=== PATIENT | female | born 1990 ===

== ENCOUNTER 2016-09-15 11:57 | Emergency (ER) | payer OTHER ==
[2016-09-15 12:29] VITALS: BP 180/92
--- NOTE | 2016-09-15 12:44 | UC ---
Lower Extremity/Ankle HPI - HPI Summary HPI Summary: The patient comes in today for: 1. Left ankle/foot pain: Onset: 4 days ago. Palliative/provocative: Standing makes it worse, but it is better tolerated than walking. Quality: sharp. Region: Left foot and ankle. Severity: 6/10 Time: Constant. Associated symptoms: Injury: She wore heels and walking over the cobblestone walkway. While walking, she slipped and fell forward. Home treatment: Iced, hot beanie, soaking with Epson salt, and Tylenol. The Tylenol helps. Numbness: None now. * - History of Current Complaint Chief Complaint: UCLowerExtremity Stated Complaint: ANKLE INJURY Time Seen by Provider: 09/15/16 12:38 Hx Obtained From: Patient Hx Last Menstrual Period: 08/25/16 ?: No - Allergies/Home Medications Allergies/Adverse Reactions: Allergies Allergy/AdvReac Type Severity Reaction Status Date / Time No Known Allergies Allergy Verified 12/15/15 07:59 PMH/Surg Hx/FS Hx/Imm Hx Previously Healthy: Yes Endocrine History Of: Denies: Diabetes, Thyroid Disease, Hyperthyroidism, Hypothyroidism, Dyslipidemia Cardiovascular History Of: Reports: Cardiac Disorders - heart murmur Denies: Hypertension, Pacemaker/ICD, Myocardial Infarction, Congestive Heart Failure, Atrial Fibrillation, Deep Vein Thrombosis, Bleeding Disorders Respiratory History Of: Reports: Asthma - PRN inhaler Denies: COPD, Bronchitis, Pneumonia, Pulmonary Embolism GI/ History Of: Denies: Gastroesophageal Reflux, Ulcer, Gastrointestinal Bleed, Gall Bladder Disease, Kidney Stones, Diverticulitis, Renal Disease, Urosepsis Neurological History Of: Denies: TIA, CVA, Dementia, Seizures, Migraine Psychological History Of: Denies: Anxiety, Depression, Bipolar Disorder, Schizophrenia, Post Traumatic Stress Disorder Cancer History Of: Denies: Lung Cancer, Colorectal Cancer, Breast Cancer, Prostate Cancer, Cervical Cancer Other History Of: Negative For: HIV, Hepatitis B, Hepatitis C, Anticoagulant Therapy - Surgical History Surgical History: None - Family History Known Family History: Positive: Cardiac Disease, Hypertension, Diabetes - Social History Occupation: Employed Full-time Alcohol Use: Rare Substance Use Type: None Smoking Status (MU): Former Smoker Type: Cigarettes Amount Used/How Often: 1/2 PPD When Did the Patient Quit Smoking/Using Tobacco: Apr 2015 - Immunization History Most Recent Influenza Vaccination: 2014 Review of Systems Constitutional: Negative Skin: Negative Eyes: Negative ENT: Negative Respiratory: Negative Cardiovascular: Negative Gastrointestinal: Negative Genitourinary: Negative Musculoskeletal: Arthralgia, Edema All Other Systems Reviewed And Are Negative: Yes Physical Exam Triage Information Reviewed: Yes Appearance: Well-Appearing, No Pain Distress, Well-Nourished Vital Signs: Initial Vital Signs Temp 98.4 F 09/15/16 12:23 Pulse 94 09/15/16 12:23 Resp 16 09/15/16 12:23 BP 180/92 09/15/16 12:23 Pulse Ox 100 09/15/16 12:23 Vital Signs Reviewed: Yes Eyes: Positive: Conjunctiva Clear. Negative: Discharge ENT: Positive: Hearing grossly normal. Negative: Pharyngeal erythema, Nasal congestion, Nasal drainage, TM bulging, TM dull, TM red, Tonsillar swelling, Tonsillar exudate Dental: Negative: Gross Decay/Caries @, Dental Fracture @ Neck: Positive: Supple, Nontender Respiratory: Positive: Chest non-tender, Lungs clear, No respiratory distress, No accessory muscle use. Negative: Crackles, Wheezing Cardiovascular: Positive: RRR, No Murmur Abdomen Description: Positive: Nontender, No Organomegaly, Soft. Negative: Distended, Guarding Musculoskeletal: Positive: Strength Intact, ROM Limited @, Edema @, Other: - There is swelling along the lateral malleolus and on the dorsum of the foot. There is ecchymosis on the inferior area of the lateral malleolus. Deluca test was normal and there was no depression along the Achilles tendon. NVI. There is tenderness to palpation of the dorsum of the foot. Neurological: Positive: Alert, Muscle Tone Normal Psychological: Positive: Age Appropriate Behavior, Consolable Skin: Positive: Other. Negative: rashes, breakdown Diagnostics - Radiology No standard instances Xray Interpretation: No Acute Changes Radiology Interpretation Completed By: Radiologist Lower Extremity Course/Dx - Course Course Of Treatment: Patient told of the x-ray reports. She declined any LEYD wrap or Gel splint. - Differential Dx/Diagnosis Provider Diagnoses: Left ankle sprain. Tendonitis of the left foot. Discharge - Discharge Plan Condition: Stable Disposition: HOME Forms: *Work Release Referrals: Raffaele Gross MD [Primary Care Provider] -
--- NOTE | 2016-09-15 13:25 | RAD ---
Indication: Dorsal LEFT foot and lateral LEFT ankle pain following twisting injury 4 days ago. Comparison: No relevant prior exams available on the [facility] PACS. Technique: AP, mortise, and lateral views LEFT ankle. AP, lateral, and oblique views LEFT foot. Report: Soft tissue swelling most prominent over the lateral malleolus and lateral aspect of the foot. Normal articular alignment at the ankle and foot. No radiographic evidence for fracture at the ankle or foot. Small os trigonum and os tibiale externum accessory ossicles noted. Chronic bipartite appearance of the lateral sesamoid at the first metatarsal phalangeal joint which may be congenital or reflect sequela of remote injury. IMPRESSION: Negative for fracture or articular malalignment at the LEFT ankle or foot. Lateral ankle and foot soft tissue swelling.
--- NOTE | 2016-09-15 13:25 | RAD ---
Indication: Dorsal LEFT foot and lateral LEFT ankle pain following twisting injury 4 days ago. Comparison: No relevant prior exams available on the [facility] PACS. Technique: AP, mortise, and lateral views LEFT ankle. AP, lateral, and oblique views LEFT foot. Report: Soft tissue swelling most prominent over the lateral malleolus and lateral aspect of the foot. Normal articular alignment at the ankle and foot. No radiographic evidence for fracture at the ankle or foot. Small os trigonum and os tibiale externum accessory ossicles noted. Chronic bipartite appearance of the lateral sesamoid at the first metatarsal phalangeal joint which may be congenital or reflect sequela of remote injury. IMPRESSION: Negative for fracture or articular malalignment at the LEFT ankle or foot. Lateral ankle and foot soft tissue swelling.
== END 2016-09-15 14:01 | disposition home or self-care (01) ==
LOC: UCEAST 11:57
DX: S93.402A Sprain of unspecified ligament of left ankle, initial encounter (principal); W01.0XXA Fall on same level from slipping, tripping and stumbling without subsequent striking against object, initial encounter; Y93.01 Activity, walking, marching and hiking; Y92.89 Other specified places as the place of occurrence of the external cause; M76.892 Other specified enthesopathies of left lower limb, excluding foot; R03.0 Elevated blood-pressure reading, without diagnosis of hypertension; Z87.891 Personal history of nicotine dependence
CPT/HCPCS: 99211; G0463

== ENCOUNTER 2018-10-11 18:54 | Emergency (ER) | payer SELFPAY ==
[2018-10-11 19:10] VITALS: BP 162/100
--- NOTE | 2018-10-11 19:23 | UC ---
Allergic Reaction HPI - HPI Summary HPI Summary: 28-year-old female presents with complaints of onset of left sided facial swelling upon waking yesterday. States the swelling started below her left eye and then progressed to involve the entire left side of her face. States she took Benadryl 50 mg every 6 hours throughout the day yesterday with improvement in her symptoms. She took another dose this morning stating still noted some mild swelling to the face but has taken none since that time. Around 2:00 this afternoon after eating lunch she said she developed a sensation of her throat swelling. States has a presumed allergy to rye bread however this has not been confirmed. Denies fever, chills, rash, pruritus, URI symptoms, dental pain, swelling of the lips or tongue, sore throat, dysphagia, trismus, difficulty breathing, or wheezing. - History of Current Complaint Chief Complaint: UCAllergicReaction Stated Complaint: ALLERGIC REACTION Time Seen by Provider: 10/11/18 18:58 Hx Obtained From: Patient Hx Last Menstrual Period: nexplanon Pain Intensity: 4 - Allergies/Home Medications Allergies/Adverse Reactions: Allergies Allergy/AdvReac Type Severity Reaction Status Date / Time rye bread Allergy See Comment Uncoded 10/11/18 19:13 Home Medications: Home Medications Acetaminophen [Tylenol Extra Strength] 1,000 mg PO Q12HR PRN 10/11/18 [History Confirmed 10/11/18] Etonogestrel [Nexplanon] 68 mg IMPLANT 10/11/18 [History] diPHENhydraMINE PO* [Benadryl PO 25 MG TAB*] 50 mg PO Q6H PRN 10/11/18 [History Confirmed 10/11/18] PMH/Surg Hx/FS Hx/Imm Hx Previously Healthy: Yes - Denies significant PMH Other History Of: Negative For: HIV, Hepatitis B, Hepatitis C, Anticoagulant Therapy - Surgical History Surgical History: None - Family History Known Family History: Positive: Cardiac Disease, Hypertension, Diabetes - Social History Occupation: Employed Full-time Lives: With Family Alcohol Use: Weekly Substance Use Type: None Smoking Status (MU): Former Smoker Type: Cigarettes Amount Used/How Often: 1/2 PPD When Did the Patient Quit Smoking/Using Tobacco: Apr 2015 - Immunization History Most Recent Influenza Vaccination: 2014 Review of Systems All Other Systems Reviewed And Are Negative: Yes Constitutional: Negative: Fever, Chills Skin: Negative: Rash Eyes: Negative: Blurred Vision, Diplopia, Drainage, Eye Redness, Photophobia ENT: Negative: Dental Pain, Sore Throat, Nasal Discharge, Sinus Congestion, Sinus Pain/Tenderness Respiratory: Negative: Shortness Of Breath, Cough Cardiovascular: Negative: Palpitations, Chest Pain Gastrointestinal: Negative: Abdominal Pain, Vomiting, Nausea Genitourinary: Positive: Negative Musculoskeletal: Positive: Negative Neurological: Negative: Headache, Weakness, Paresthesia, Numbness Is Patient Immunocompromised?: No Physical Exam - Summary Physical Exam Summary: GENERAL APPEARANCE: Well developed, well nourished, alert and cooperative, and appears to be in no acute distress. HEAD: Mild left-sided facial swelling over the maxilla. EYES: Conjunctiva clear. No drainage. PERRL, EOM intact. Vision is grossly intact. EARS: External auditory canals and tympanic membranes clear, hearing grossly intact. NOSE: No nasal congestion or discharge. No sinus tenderness with percussion. THROAT: Pharynx normal. Tonsils 2+ without swelling, exudate, or lesions. Uvula midline. Multiple dental caries and teeth with severe decay. No abscess noted. No swelling of the lips, tongue, or throat. NECK: Neck supple, non-tender without lymphadenopathy. CARDIAC: Normal S1 and S2. No S3, S4 or murmurs. Rhythm is regular. There is no peripheral edema, cyanosis or pallor. Extremities are warm and well perfused. Capillary refill is less than 2 seconds. Peripheral pulses intact. LUNGS: Clear to auscultation without rales, rhonchi, wheezing or diminished breath sounds. ABDOMEN: Positive bowel sounds. Soft, nondistended, nontender. No guarding or rebound. No masses or hepatosplenomegally. MUSKULOSKELETAL: ROM intact to all extremities. No joint erythema or tenderness. Normal muscular development. Normal gait. NEUROLOGICAL: CN II-XII intact. Strength and sensation symmetric and intact throughout. SKIN: Skin normal color, texture and turgor with no lesions or eruptions. Triage Information Reviewed: Yes Vital Signs: Initial Vital Signs Temp 98.9 F 10/11/18 18:59 Pulse 109 10/11/18 18:59 Resp 18 10/11/18 18:59 BP 162/100 10/11/18 18:59 Pulse Ox 100 10/11/18 18:59 Vital Signs Reviewed: Yes Allergic Reaction Course/Dx - Course Course Of Treatment: 28-year-old female presents with complaints of onset of left sided facial swelling upon waking yesterday. States the swelling started below her left eye and then progressed to involve the entire left side of her face. States she took Benadryl 50 mg every 6 hours throughout the day yesterday with improvement in her symptoms. She took another dose this morning stating still noted some mild swelling to the face but has taken none since that time. Around 2:00 this afternoon after eating lunch she said she developed a sensation of her throat swelling. States has a presumed allergy to rye bread however this has not been confirmed. Denies fever, chills, rash, pruritus, URI symptoms, dental pain, swelling of the lips or tongue, sore throat, dysphagia, trismus, difficulty breathing, or wheezing. Afebrile. Vital signs stable. Exam reveals a young adult female in no acute distress with mild swelling to the left maxillary face , overall poor dentition with multiple dental caries several teeth in various decay, no evidence of dental abscess, no nasal congestion, no sinus tenderness with percussion, no swelling of the lips tongue or throat, pharynx normal, tonsils 2+ without exudate, airway patent, no cervical lymphadenopathy, no respiratory distress, clear bilateral breath sounds, and otherwise unremarkable exam. There is no clear indication as to the cause of this facial swelling and with her stating that improved with Benadryl and going to treat this as a presumed allergic reaction. Patient was given a dose of prednisone 60 mg by mouth and diphenhydramine 50 mg by mouth in the clinic. She is to continue the prednisone 50 mg daily for the next 2 days as well as using [id number] nondrowsy antihistamine twice a day for the next 5 days. She is to follow-up with her primary care provider within the next 2 days for recheck of symptoms. Anticipatory guidance and warning symptoms were reviewed with the patient. Verbalizes understanding and agrees with plan of care. - Differential Dx/Diagnosis Differential Diagnosis/HQI/PQRI: Anaphylaxis, Angioedema, Local Allergic Reaction Provider Diagnosis: Swelling of left side of face Discharge - Sign-Out/Discharge Documenting (check all that apply): Patient Departure All imaging exams completed and their final reports reviewed: No Studies - Discharge Plan Condition: Stable Disposition: HOME Prescriptions: predniSONE TAB* [Deltasone TAB*] 50 mg PO DAILY #2 tab Patient Education Materials: General Allergic Reaction (ED) Referrals: Raffaele Gross MD [Primary Care Provider] - 2 Days (For recheck of symptoms.) Additional Instructions: There was no clear indication as to the cause of your facial swelling on exam. I am going to treat you for a possible allergic reaction at this time. Take prednisone 50 mg 1 tab daily for 2 days starting tomorrow. We gave you a dose in the clinic tonight. Use a non-drowsy antihistamine such as Zyrtec, Claritin, or Diana twice a day for the next 5 days. You may use the generic brand of these medications. Follow up with your primary care provider within 2 days for a recheck of symptoms. Call first thing in the morning to schedule an appointment. Seek immediate medical attention in the emergency room if you have any worsening of the facial swelling, swelling of the lips, tongue, or throat, you are unable to swallow, have difficulty breathing, or any worsening of symptoms. - Billing Disposition and Condition Condition: STABLE Disposition: Home
[2018-10-11] MEDS ORDERED: diPHENhydraMINE PO* 50 MG PO ONE (19:30)
[2018-10-11] MEDS ORDERED: predniSONE TAB* 20 MG PO ONE (19:30)
== END 2018-10-11 19:55 | disposition home or self-care (01) ==
LOC: UCEAST 18:54
DX: R22.0 Localized swelling, mass and lump, head (principal); Z87.891 Personal history of nicotine dependence; Z91.09 Other allergy status, other than to drugs and biological substances
CPT/HCPCS: 99212; A9270-GY; G0463; J7512